=== PATIENT | female | born 2000 | race Caucasian/White ===

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

== ENCOUNTER → 2022-09-17 | Outpatient (CLI) | payer BC, OTHER ==
--- NOTE | 2022-09-17 16:29 | USB ---
Reason for Exam: Clinical finding. Technique: Method: Targeted. Findings: The lower inner quadrant of the left breast, the axilla of the left breast and the retroareolar of the left breast were scanned. Targeted ultrasound left breast shows 10 x 7 x 11 mm oval circumscribed hypoechoic lesion with increased through transmission that is avascular. Debris-filled cyst is suspected. Left axilla shows prominent but benign-appearing node measuring 1.3 x 0.4 x 0.8 cm cyst. Slight concentric cortical thickening is noted. Overall Assessment: Probably benign, BI-RAD 3 Management: Diagnostic Breast Ultrasound of the left breast in 4 months. No convincing evidence for malignancy. Repeat ultrasound in 3-6 months time is advised. Results were given to the patient verbally at the time of exam. Electronically signed and approved by: Conner Dumont M.D.
== END | disposition home or self-care (01) ==
LOC: RADUSWWP 15:07
PROVIDERS: ATTEND Obstetrics & Gynecology Obstetrics
DX: N63.20 Unspecified lump in the left breast, unspecified quadrant (principal)

== ENCOUNTER → 2022-12-17 | Outpatient (CLI) | payer BC, OTHER ==
--- NOTE | 2022-12-17 12:54 | USB ---
Reason for Exam: Follow-up at short interval from prior study. Technique: Method: Targeted. Findings: The area of palpable concern of the left breast, the lower inner quadrant of the left breast, the axilla of the left breast and the retroareolar of the left breast were scanned. Targeted ultrasound left breast shows a oval heterogeneous hypoechoic lesion 8:00 position 2 cm distance from nipple measuring 1.3 x 0.8 x 1.1 cm. This has increased through transmission without internal vascularity. Left axillary lymph node is diminished in size and cortical thickness from prior ultrasound. No new solid or cystic masses identified. Overall Assessment: Probably benign, BI-RAD 3 Management: Surgical Consultation of the left breast. Screening Mammogram of both breasts at age 42. Surgical consult as suspected debris filled cyst or small fibroadenoma to discuss management options. Electronically signed and approved by: Conner Dumont M.D.
== END | disposition home or self-care (01) ==
LOC: RADUSWWP 09:37
PROVIDERS: ATTEND Surgery
DX: N63.42 Unspecified lump in left breast, subareolar (principal)

== ENCOUNTER → 2023-03-20 | Outpatient (CLI) | payer BC, OTHER ==
--- NOTE | 2023-03-20 09:34 | USB ---
Reason for Exam: Follow-up at short interval from prior study. Technique: Method: Targeted. Patient Position: Supine. Findings: A complete US of all four quadrants of the left breast and retro-areolar region were reviewed. Redemonstration of an oval heterogenous hypoechoic lesion at 8:00 2 cm the nipple measuring 1.3 x 0.8 x 1.1 cm, previously 1.3 x 0.8 x 1.1 cm. This has increased through transmission without internal vascularity. Probable fibroadenoma versus debris-filled cyst. Overall Assessment: Benign, BI-RAD 2 Management: Screening Mammogram of both breasts at age 42. Surgical consultation is again recommended. A clinical breast exam by your physician is recommended on an annual basis and results should be correlated with mammographic findings. This exam should not preclude additional follow-up of suspicious palpable abnormalities. Results were given to the patient verbally at the time of exam. Electronically signed and approved by: Marco Antonio Lloyd D.O.
== END | disposition home or self-care (01) ==
LOC: RADUSWWP 08:49
PROVIDERS: ATTEND Surgery
DX: N63.42 Unspecified lump in left breast, subareolar (principal)